=== PATIENT | female | born 1940 | race Caucasian/White ===

== ENCOUNTER 2018-01-25 11:55 | Inpatient (IN) ==
[2018-01-25] MEDS ORDERED: SODIUM CHLORIDE 0.9% 2,100 ML IV ONE (13:54)
[2018-01-25] MEDS ORDERED: LEVOFLOXACIN INJ 500 MG in PREMIX 1 EACH IV STA (13:57)
[2018-01-25 14:22] LABS: Basophils % 0.4 % (0.0-0.8); Eosinophils % 0.2 % (0.00-10.9); Hematocrit 39.6 VOL% (35.7-47.0); Hemoglobin 13.6 GM/DL (12.0-16.0); Immature Granulocytes % 0.5 %; Immature Granulocytes Absolute 0.04 #; Lymphocytes # 1.3 10*3/uL (1.4-4.0); Lymphocytes % 15.5 % (21.3-54.2); Mean Corpuscular HGB Conc 34.3 GM/DL (32-36); Mean Corpuscular Hemoglobin 31 PG (27-34); Mean Corpuscular Volume 90.4 FL (87-102); Mean Platelet Volume 8.9 FL (9.6-12.0); Monocytes # 0.6 10*3/uL (0.11-0.8); Monocytes % 7.1 % (1.7-12.7); Neutrophils # 6.4 10*3/uL (1.4-7.4); Neutrophils % 76.3 % (38.7-73.9); Platelet Count 201 T/CUMM (130-400); Red Blood Count 4.38 MC/CUMM (3.8-5.5); Red Cell Distribution Width 13.4 % (9.3-17.3); White Blood Count 8.4 T/CUMM (4-12)
[2018-01-25 14:29] LABS: Albumin 3.4 G/DL (3.4-5.0); Bilirubin,Total 0.6 MG/DL (0.2-1.0); Lactic Acid 1.1 MMOL/L (0.4-2.0); Osmolality,Calculated 264.5 MOS/KG (273-304); Potassium 3.8 MMOL/L (3.5-5.1)
[2018-01-25 14:34] LABS: PT Patient Result 10.7 SECS; Partial Thromboplastin Time 27.8 SECS (0-40)
[2018-01-25] MEDS ORDERED: ONDANSETRON 4 MG/2 ML VIAL IV PRN (15:07)
[2018-01-25] MEDS ORDERED: MORPHINE 4 MG/1 ML VIAL IV PRN (15:07)
[2018-01-25] MEDS ORDERED: DOCUSATE SODIUM 100 MG CAPSULE PO PRN (15:07)
[2018-01-25] MEDS ORDERED: DOXYCYCLINE HYCLATE INJ 100 MG in SODIUM CHLORIDE 0.9% 100 ML IV STA (16:24)
[2018-01-25] MEDS: PANTOPRAZOLE 40 MG TABLET PO SCH (17:30)
[2018-01-25] MEDS: SODIUM CHLORIDE 0.9% 1,000 ML IV SCH (17:30)
[2018-01-25] MEDS: ACETAMINOPHEN 325 MG TABLET PO PRN ×2 (18:18→21:32)
[2018-01-26] MEDS: DOXYCYCLINE HYCLATE INJ 100 MG in SODIUM CHLORIDE 0.9% 100 ML IV SCH ×2 (03:49→17:54)
[2018-01-26 06:47] LABS: Basophils % 0.3 % (0.0-0.8); Eosinophils # 0.1 10*3/uL (0.0-0.87); Eosinophils % 1.5 % (0.00-10.9); Hematocrit 36.2 VOL% (35.7-47.0); Immature Granulocytes % 0.3 %; Immature Granulocytes Absolute 0.02 #; Lymphocytes # 1.5 10*3/uL (1.4-4.0); Lymphocytes % 23.1 % (21.3-54.2); Mean Corpuscular HGB Conc 33.1 GM/DL (32-36); Mean Corpuscular Hemoglobin 31 PG (27-34); Mean Corpuscular Volume 91.9 FL (87-102); Monocytes # 0.7 10*3/uL (0.11-0.8); Neutrophils # 4.2 10*3/uL (1.4-7.4); Neutrophils % 64.8 % (38.7-73.9); Platelet Count 187 T/CUMM (130-400); Red Blood Count 3.94 MC/CUMM (3.8-5.5); Red Cell Distribution Width 13.3 % (9.3-17.3); White Blood Count 6.5 T/CUMM (4-12)
[2018-01-26 07:10] LABS: Calcium 7.8 MG/DL (8.5-10.1); Osmolality,Calculated 270.8 MOS/KG (273-304); Potassium 3.4 MMOL/L (3.5-5.1)
[2018-01-26 07:27] LABS: Risk Ratio 5.71; Thyroid Stimulating Hormone 0.452 uIU/ml (0.358-3.74); VLDL CHOLESTEROL 40.6 MG/DL
[2018-01-26] MEDS ORDERED: NITROGLYCERIN SL 0.4 MG TABLET SL PRN (08:34)
[2018-01-26] MEDS ORDERED: POTASSIUM CHLORIDE 20 MEQ TABLET PO ONE (08:36)
[2018-01-26] MEDS ORDERED: LOSARTAN 50 MG TABLET PO SCH (09:00)
[2018-01-26] MEDS ORDERED: amLODIPine 5 MG TABLET PO SCH (09:00)
[2018-01-26] MEDS: SODIUM CHLORIDE 0.9% 1,000 ML IV SCH (09:30)
[2018-01-26] MEDS: ROSUVASTATIN 20 MG TABLET PO SCH (09:31)
[2018-01-26] MEDS: CLOPIDOGREL 75 MG TABLET PO SCH (09:31)
[2018-01-26] MEDS: ISOSORBIDE MONONITRATE 30 MG TABLET PO SCH (09:31)
[2018-01-26] MEDS: METOPROLOL SUCCINATE XL 25 MG TABLET PO SCH (09:31)
[2018-01-26] MEDS: APIXABAN 2.5 MG TABLET PO SCH ×2 (09:32→20:53)
[2018-01-26] MEDS: PANTOPRAZOLE 40 MG TABLET PO SCH (09:32)
[2018-01-26] MEDS: OMEGA 3 ACID ETHYL ESTERS 1 GM CAPSULE PO SCH (09:32)
[2018-01-26] MEDS ORDERED: POLYVINYL ALCOHOL 1.4% OPH SOLN 15 ML BOTTLE BOTH EYES PRN (12:48)
[2018-01-26] MEDS ORDERED: LEVOFLOXACIN INJ 500 MG in PREMIX 1 EACH IV SCH (14:30)
[2018-01-27] MEDS: SODIUM CHLORIDE 0.9% 1,000 ML IV SCH ×2 (00:45→21:35)
[2018-01-27] MEDS: DOXYCYCLINE HYCLATE INJ 100 MG in SODIUM CHLORIDE 0.9% 100 ML IV SCH (04:07)
[2018-01-27] MEDS: ROSUVASTATIN 20 MG TABLET PO SCH (09:05)
[2018-01-27] MEDS: OMEGA 3 ACID ETHYL ESTERS 1 GM CAPSULE PO SCH (09:05)
[2018-01-27] MEDS: CLOPIDOGREL 75 MG TABLET PO SCH (09:05)
[2018-01-27] MEDS: ISOSORBIDE MONONITRATE 30 MG TABLET PO SCH (09:05)
[2018-01-27] MEDS: APIXABAN 2.5 MG TABLET PO SCH ×2 (09:05→21:32)
[2018-01-27] MEDS: METOPROLOL SUCCINATE XL 25 MG TABLET PO SCH (09:06)
[2018-01-27] MEDS: diphenhydrAMINE CAP 25 MG CAPSULE PO PRN ×3 (09:06→23:04)
[2018-01-27] MEDS: PANTOPRAZOLE 40 MG TABLET PO SCH (09:07)
[2018-01-27] MEDS ORDERED: methylPREDNISolone SOD SUC 125 MG/2 ML VIAL IV ONE (09:43)
[2018-01-27] MEDS: FAMOTIDINE 20 MG/2 ML VIAL IV SCH ×2 (10:15→21:32)
[2018-01-27] MEDS ORDERED: CETIRIZINE 10 MG TABLET PO SCH (10:30)
[2018-01-27] MEDS: methylPREDNISolone SOD SUC 40 MG/1 ML VIAL IV SCH (17:09)
[2018-01-27] MEDS: TOBRAMYCIN/DEXAMETHASONE 0.3%-0.1% OPH SUSP 2.5 ML BOTTLE LEFT EYE SCH ×2 (18:27→21:33)
[2018-01-27 23:26] LABS: Ehrlichia Chaffeensis (HME)IgG <1:64 titer (<1:64)
[2018-01-28] MEDS: SODIUM CHLORIDE 0.9% 1,000 ML IV SCH (00:19)
[2018-01-28] MEDS: TOBRAMYCIN/DEXAMETHASONE 0.3%-0.1% OPH SUSP 2.5 ML BOTTLE LEFT EYE SCH ×3 (02:40→09:16)
[2018-01-28 05:42] LABS: Basophils % 0.1 % (0.0-0.8); Hematocrit 34.8 VOL% (35.7-47.0); Hemoglobin 11.4 GM/DL (12.0-16.0); Immature Granulocytes % 0.7 %; Immature Granulocytes Absolute 0.06 #; Lymphocytes # 1.1 10*3/uL (1.4-4.0); Mean Corpuscular HGB Conc 32.8 GM/DL (32-36); Mean Corpuscular Hemoglobin 30 PG (27-34); Mean Corpuscular Volume 92.1 FL (87-102); Mean Platelet Volume 8.6 FL (9.6-12.0); Monocytes # 0.5 10*3/uL (0.11-0.8); Monocytes % 5.3 % (1.7-12.7); Neutrophils # 7.2 10*3/uL (1.4-7.4); Neutrophils % 81.9 % (38.7-73.9); Platelet Count 233 T/CUMM (130-400); Red Blood Count 3.78 MC/CUMM (3.8-5.5); White Blood Count 8.7 T/CUMM (4-12)
[2018-01-28] MEDS: methylPREDNISolone SOD SUC 40 MG/1 ML VIAL IV SCH (05:44)
[2018-01-28 06:24] LABS: Albumin 2.7 G/DL (3.4-5.0); Bilirubin,Total 0.5 MG/DL (0.2-1.0); Calcium 7.5 MG/DL (8.5-10.1); Osmolality,Calculated 284.3 MOS/KG (273-304); Potassium 3.6 MMOL/L (3.5-5.1); Total Protein 5.9 G/DL (6.4-8.3)
[2018-01-28] MEDS ORDERED: predniSONE 20 MG TABLET PO SCH (09:00)
[2018-01-28] MEDS ORDERED: CETIRIZINE 10 MG TABLET PO SCH (09:00)
[2018-01-28] MEDS: OMEGA 3 ACID ETHYL ESTERS 1 GM CAPSULE PO SCH (09:16)
[2018-01-28] MEDS: FAMOTIDINE 20 MG/2 ML VIAL IV SCH ×2 (09:16→11:40)
[2018-01-28] MEDS: PANTOPRAZOLE 40 MG TABLET PO SCH (09:16)
[2018-01-28] MEDS: CLOPIDOGREL 75 MG TABLET PO SCH (09:16)
[2018-01-28] MEDS: APIXABAN 2.5 MG TABLET PO SCH (09:16)
[2018-01-28] MEDS: ROSUVASTATIN 20 MG TABLET PO SCH (09:16)
[2018-01-28] MEDS: ISOSORBIDE MONONITRATE 30 MG TABLET PO SCH (09:16)
[2018-01-28] MEDS: METOPROLOL SUCCINATE XL 25 MG TABLET PO SCH (09:17)
[2018-01-28 12:26] VITALS: BP 150/72
== END 2018-01-28 13:30 | disposition home or self-care (01) | DRG 864 ==
LOC: N.ED 11:55 → SUATTDRO 15:07 → N.EDINP 15:07 → N.5E 17:24
PROVIDERS: ADMIT Internal Medicine; ATTEND Internal Medicine